=== PATIENT | female | born 1990 | race African-American/Black ===

== ENCOUNTER 2018-09-28 18:28 | Emergency (ER) | payer MEDICAID ==
[~2018-09-28] VITALS: Ht 165.1 cm; Wt 60.8 kg
[2018-09-28 19:42] VITALS: BP 126/81
[2018-09-28] MEDS ORDERED: ALBUTEROL SULF 2.5 MG/0.5ML(0.5%) NEB SOLN NEB ONE (20:30)
[2018-09-28] MEDS ORDERED: IPRATROPIUM BROM 0.5 MG/2.5ML INH SOL NEB ONE (20:30)
== END 2018-09-28 22:01 | disposition home or self-care (01) ==
LOC: ER 18:32
DX: H66.93 Otitis media, unspecified, bilateral (principal); J45.901 Unspecified asthma with (acute) exacerbation; J32.9 Chronic sinusitis, unspecified
CPT/HCPCS: 94640; 99283; J7611; J7644

== ENCOUNTER 2020-03-04 22:46 | Emergency (ER) | payer MEDICAID, OTHER ==
[~2020-03-04] VITALS: Ht 167.6 cm; Wt 56.7 kg
[~2020-03-04 22:46] MED LIST: CIPR-173 PO; METR500T PO
[2020-03-05 02:29] VITALS: BP 123/82
== END 2020-03-05 02:59 | disposition home or self-care (01) ==
LOC: ER 22:46 → EDBD 22:46 → EDUNIT# 22:46 → ER 03-05 02:59
DX: S73.101A Unspecified sprain of right hip, initial encounter (principal); T20.20XA Burn of second degree of head, face, and neck, unspecified site, initial encounter; T26.40XA Burn of unspecified eye and adnexa, part unspecified, initial encounter; V49.9XXA Car occupant (driver) (passenger) injured in unspecified traffic accident, initial encounter; Y93.89 Activity, other specified; Y92.89 Other specified places as the place of occurrence of the external cause; Y99.8 Other external cause status
CPT/HCPCS: 16020